=== PATIENT | male | born 1980 | race Caucasian/White ===

== ENCOUNTER 2021-07-13 13:03 | Outpatient (CLI) | payer BC | END 2021-07-13 13:04 | disposition home or self-care (01) | LOC: DTY/OP 13:03 | PROVIDERS: ATTEND Specialist | DX: Z01.818 Encounter for other preprocedural examination (principal); E66.01 Morbid (severe) obesity due to excess calories; Z71.3 Dietary counseling and surveillance | CPT/HCPCS: 97802 ==

== ENCOUNTER 2022-05-10 17:00 | Outpatient (CLI) | payer BC | END 2022-05-10 17:01 | disposition home or self-care (01) | LOC: SLEEPLAB 17:00 | PROVIDERS: ATTEND Family Medicine | DX: G47.33 Obstructive sleep apnea (adult) (pediatric) (principal); R53.83 Other fatigue; R06.83 Snoring; E66.9 Obesity, unspecified; I10 Essential (primary) hypertension; Z53.9 Procedure and treatment not carried out, unspecified reason | CPT/HCPCS: 95800 ==

== ENCOUNTER 2023-04-19 11:34 | Day surgery (SDC) | payer BC ==
[2023-04-18 12:27] VITALS: BMI 50.9
[2023-04-19] MEDS ORDERED: Midazolam HCl 2 mg/2 ml Vial ONE (13:32)
[2023-04-19] MEDS ORDERED: PROPOFOL 200 MG/20 ML VIAL ONE (13:39)
[2023-04-19 14:59] LABS: #Eosinphils 0.1 thou/uL (0.0-0.7); #Monocytes 0.3 thou/uL (0.11-0.59); #Neutrophils 2.8 thou/uL (1.40-6.50); %Basophils 0.5 % (0.0-1.0); %Eosinophils 1.2 % (0.0-10.0); %Lymphocytes 23.9 % (21.0-51.0); %Monocytes 7.1 % (0.0-10.0); %Neutrophils 67.1 % (42.0-75.0); Hemoglobin 12.7 g/dL (14.0-18.0); Mean Corpuscular HGB CONC 32.9 g/dL (32.0-36.0); Mean Corpuscular Hemoglobin 26.8 pg (27.0-31.0); Mean Corpuscular Volume 81.4 fl (78.0-98.0); RBC Distribution Width 14.2 % (11.5-14.5); Red Blood Cell (RBC) Count 4.74 mill/uL (4.70-6.10); White Blood Cell (WBC) Count 4.1 10x3/uL (4.8-10.8)
[2023-04-19 15:01] LABS: Platelet Count 106 10x3/uL (130-400)
[2023-04-19 15:10] LABS: Prothrombin Time 13.5 sec (12.0-14.7)
[2023-04-19 15:11] LABS: PTT 27.1 sec (22.9-36.1)
[2023-04-19 15:14] LABS: Follow-up Coag Comp? YES; Follow-up Hematology Comp? YES; Follow-up Result - Coag REPORT FAXED; Follow-up Result - Hematology REPORT FAXED
[2023-04-19 15:27] LABS: ALT (SGPT) 26 U/L (8-55); AST (SGOT) 32 U/L (5-34); Alkaline Phosphatase 107 U/L (40-110); Anion Gap 13 mmol/L (10-20); BUN (Urea Nitrogen) 12 mg/dL (8.9-20.6); Bilirubin, Total 0.4 mg/dL (0.2-1.2); Calc. Creatinine Clearance 285 mL/min (70-130); Calcium 9.2 mg/dL (7.8-10.44); Carbon Dioxide 23 mmol/L (22-29); Cardiac Risk 4.6 (Less than 4.5); Chloride 105 mmol/L (98-107); Cholesterol 209 mg/dl (< 200 Desired); Estimated GFR 114; Globulin 3.4 g/dL (2.4-3.5); Glucose 86 mg/dL (70-105); HDL Cholesterol 45 mg/dL (>60 Neg Risk); LDL Cholesterol, Calculated 145 mg/dL; Potassium 4.2 mmol/L (3.5-5.1); Protein, Total 7.4 g/dL (6.0-8.3); Sodium 137 mmol/L (136-145); Triglycerides 93 mg/dL (Less than 150)
[2023-04-19 15:41] LABS: HBSAB Concentration Less than 8.00 mIU/mL; HBSAg Index 0.24 S/CO (0-0.99); Hep A IgM AB Non-Reactive S/CO (NonReactive); Hep A IgM S/CO 0.28 S/CO (0-0.79); Hep B Surf AB Non-Reactive (NonReactive); Hep B Surf Ag Non-Reactive S/CO (NonReactive); Thyroid Stimulating Hormone 6.9785 uIU/mL (0.35-4.94); Vitamin D, 25 Hydroxy 25.2 ng/ml (> 30.0)
[2023-04-19 15:52] LABS: Follow-up Chemistry Comp? YES; Follow-up Result - Chemistry REPORT FAXED
== END 2023-04-19 15:10 | disposition home or self-care (01) ==
LOC: SDC 11:34
PROVIDERS: ATTEND Internal Medicine Gastroenterology
PROC: 06L28CZ Occlusion of Gastric Vein with Extraluminal Device, Via Natural or Artificial Opening Endoscopic (ICD-10-PCS; principal; 2023-04-19)
DX: K74.60 Unspecified cirrhosis of liver (principal); K76.0 Fatty (change of) liver, not elsewhere classified; Z87.891 Personal history of nicotine dependence; Z78.9 Other specified health status; Z92.29 Personal history of other drug therapy; Z79.899 Other long term (current) drug therapy
CPT/HCPCS: 80053; 80061; 82306; 84443; 85025; 85610; 85730; 86706; 86709; 87340; J2250; J2704